=== PATIENT | male | born 1980 | race Caucasian/White ===

== ENCOUNTER 2016-05-09 11:30 | Emergency (ER) | payer SELFPAY ==
[2016-05-09 11:34] VITALS: BMI 32.3
[2016-05-09] MEDS ORDERED: ASPIRIN PO ONE (11:48)
[2016-05-09] MEDS ORDERED: NITROSTAT SL PRN (11:48)
[2016-05-09] MEDS ORDERED: ASPIRIN ONE (11:49)
[2016-05-09] MEDS ORDERED: NITROSTAT SL ONE (11:50)
[2016-05-09 12:02] LABS: BASOPHILS # (AUTO) 0.1 X10^3/uL (0.0-0.1); BASOPHILS % (AUTO) 1.3 % (0.2-1.0); EOSINOPHILS # (AUTO) 0.3 x10^3/uL (0.0-0.2); EOSINOPHILS % (AUTO) 3.9 % (0.9-2.9); HEMATOCRIT 42.5 % (42.0-54.0); HEMOGLOBIN 14.4 g/dL (13.5-18.0); LYMPHOCYTES # (AUTO) 1.3 X10^3/uL (1.3-2.9); LYMPHOCYTES % (AUTO) 19.9 % (21.0-51.0); MEAN CORPUSCULAR HEMOGLOBIN 27.6 pg (27.0-34.0); MEAN CORPUSCULAR HGB CONC 33.8 g/dL (33.0-35.0); MEAN CORPUSCULAR VOLUME 81.5 fL (80.0-100.0); MEAN PLATELET VOLUME 8.2 fL (7.4-11.0); MONOCYTES # (AUTO) 0.5 x10^3/uL (0.3-0.8); MONOCYTES % (AUTO) 8.1 % (0.0-13.0); NEUTROPHILS # (AUTO) 4.5 x10^3/uL (2.2-4.8); NEUTROPHILS % (AUTO) 66.8 % (42.0-75.0); PLATELET COUNT 314 X10^3/uL (150.0-450.0); RED BLOOD COUNT 5.21 X10^6/uL (4.7-6.0); RED CELL DISTRIBUTION WIDTH 14.1 % (11.6-16.5); WHITE BLOOD COUNT 6.7 X10^3/uL (3.6-10.0)
[2016-05-09 12:20] VITALS: BP 131/65
[2016-05-09 12:30] LABS: BLOOD UREA NITROGEN 16 mg/dL (7-18); CALCIUM 8.8 mg/dL (8.5-10.1); CARBON DIOXIDE 28.5 mmol/L (21-32); CHLORIDE 104 mmol/L (98-107); D DIMER < 100 ng/mL (0-400); GLUCOSE 78 mg/dL (65-99); SODIUM 142 mmol/L (136-145); TROPONIN I < 0.02 ng/mL (0-1.5); eGFR BLACK RACES > 60 (>60); eGFR NON BLACK RACES > 60 (>60)
[2016-05-09 12:34] LABS: ALANINE AMINOTRANSFERASE 46 Units/L (12-78); ALBUMIN 3.9 g/dL (3.4-5.0); ALKALINE PHOSPHATASE 95 Units/L (46-116); ASPARTATE AMINO TRANSFERASE 19 Units/L (15-37); CREATINE KINASE 103 Units/L (39-308); CREATINE KINASE MB < 1.0 ng/mL (0-4.0); TOTAL PROTEIN 7.7 g/dL (6.4-8.2)
--- NOTE | 2016-05-09 12:50 | RAD ---
HISTORY: Chest pain Study: Chest, one view Comparison: None Findings: The trachea is midline. The cardiac silhouette is unremarkable. The lungs are clear without focal infiltrate or effusion. The bony thorax is unremarkable. IMPRESSION: 1. No acute cardiopulmonary disease. Reported By:
--- NOTE | 2016-05-09 12:51 | DR.GENAD ---
HPI - PCP Primary Care Physician: [email or web address] - HPI Comment HPI Comment: 36 y/o white male with remarkable HTN presents to ED complaining of feeling chest tightness since approximately two hours ago.Patient denies SOB headaches.Patient denies recent stressful event. - Complaint/Symptoms Chief Complaint Doctors Comments: Chest tightness Chief Complaint:: patient stated he has had chest pain for the last couple of hours. he stated its tight in his chest - Nurses notes reviewed Nurses Notes Review: Yes - Source History Provided: Patient - Mode of Arrival Mode of Arrival: Ambulatory - Timing Onset of Chief Complaint: 05/09/16 Came on: Suddenly - Duration Duration: Since Onset Duration: Hours - Severity Severity: Mild PMH - PMH Past Medical History: Yes Past Medical History: Hypertension Past Surgical History: No - Family History History of Family Medical Conditions: Yes Family Medical History: Diabetes Mellitus, [place], Coronary Artery Disease - Social History Does patient currently use any type of tobacco product: No Have you used tobacco products in the last 12 months: No Type of Tobacco Use: None Does any household member use tobacco: No Alcohol Use: None Do you use any recreational Drugs:: No Lives With: Family Lives Where: Home - infectious screening In the last 2 months have you had wt loss of >10#?: NO Have you had fever, night sweats or hemotysis?: No Have you traveled outside the country in the last 6 months?: No Isolation: Standard ROS - Review of Systems Constitutional: No Symptoms Reported Eyes: No Symptoms Reported ENTM: No Symptoms Reported Respiratoy: See HPI Cardiovascular: No Symptoms Reported Gastrointestinal/Abdominal: No Symptoms Reported Genitourinary: No Symptoms Reported Neurological: No Symptoms Reported Musculoskeletal: No Symptoms Reported Integumentary: No Symptoms Reported Hematologic/Lymphatic: No Symptoms Reported Endocrine: No Symptoms Reported Psychiatric: No Symptoms Reported All Other Systems: Reviewed and Negative PE - Vital Signs Vitals: Pulse Rate [Right Brachial] 78 Respiratory Rate 16 Blood Pressure [Right Arm] 131/65 Blood Pressure 122/78 O2 Sat by Pulse Oximetry 98 - General Limitations: No Limitations General Appearance: Alert, In No Apparent Distress - Head Head Exam: Normal Inspection - Eyes Eye exam: Normal Appearance - ENT ENT Exam: Normal Exam, Normal Oropharynx, Normal External Ear Exam External Ear Exam: Normal External Inspection TM/Canal Exam: Bilateral Normal Nose Exam: Normal Nose Exam Mouth Exam: Normal Inspection Throat Exam: Normal Inspection - Neck Neck Exam: Normal Inspection - Chest Chest Inspection: Normal Inspection - Respiratory Respiratory Exam: Normal Lung Sounds Bilat Respiratory Exam: Bilateral Clear to Auscultation - Cardiovascular Cardiovascular Exam: Regular Rate, Normal Rhythm - Abdominal Exam Abdominal Exam: Normal Inspection, Normal Bowel Sounds, Soft - Extremities Extremities Exam: Normal Inspection - Back Back Exam: Normal Inspection - Neurologic Neurological Exam: Alert, Oriented X3, CN II-XII Intact - Psychiatric Psychiatric Exam: Anxious - Skin Skin Exam: Warm, Dry, Intact, Normal Color Course - Reevaluation 1st: Resolved - Education/Counseling Education/Counseling: Patient Educated On: Treatment, Diagnosis, Needs for Follow Up ROR - Labs Reviewed Laboratory Results Reviewed?: Yes Result Diagrams: 05/09/16 11:45 05/09/16 11:45 Laboratory: WBC 6.7 X10^3/uL (3.6-10.0) 05/09/16 11:45 RBC 5.21 X10^6/uL (4.7-6.0) 05/09/16 11:45 Hgb 14.4 g/dL (13.5-18.0) 05/09/16 11:45 Hct 42.5 % (42.0-54.0) 05/09/16 11:45 MCV 81.5 fL (80.0-100.0) 05/09/16 11:45 MCH 27.6 pg (27.0-34.0) 05/09/16 11:45 MCHC 33.8 g/dL (33.0-35.0) 05/09/16 11:45 RDW 14.1 % (11.6-16.5) 05/09/16 11:45 Plt Count 314 X10^3/uL (150.0-450.0) 05/09/16 11:45 MPV 8.2 fL (7.4-11.0) 05/09/16 11:45 Neut % 66.8 % (42.0-75.0) 05/09/16 11:45 Lymph % 19.9 % (21.0-51.0) L 05/09/16 11:45 [place] % 8.1 % (0.0-13.0) 05/09/16 11:45 Eos % 3.9 % (0.9-2.9) H 05/09/16 11:45 Baso % 1.3 % (0.2-1.0) H 05/09/16 11:45 Neut # 4.5 x10^3/uL (2.2-4.8) 05/09/16 11:45 Lymph # 1.3 X10^3/uL (1.3-2.9) 05/09/16 11:45 [place] # 0.5 x10^3/uL (0.3-0.8) 05/09/16 11:45 Eos # 0.3 x10^3/uL (0.0-0.2) H 05/09/16 11:45 Baso # 0.1 X10^3/uL (0.0-0.1) 05/09/16 11:45 Absolute Nucleated RBC 0.1 /100WBC 05/09/16 11:45 INR Target Range - 05/09/16 11:45 INR 0.97 (0.8-1.3) 05/09/16 11:45 PTT 25.1 SECONDS (22.9-36.5) 05/09/16 11:45 PTT Comment - 05/09/16 11:45 D-Dimer < 100 ng/mL (0-400) 05/09/16 11:45 Sodium 142 mmol/L (136-145) 05/09/16 11:45 Corrected Sodium TNP 05/09/16 11:45 Potassium 4.0 mmol/L (3.5-5.1) 05/09/16 11:45 Chloride 104 mmol/L (98-107) 05/09/16 11:45 Carbon Dioxide 28.5 mmol/L (21-32) 05/09/16 11:45 BUN 16 mg/dL (7-18) 05/09/16 11:45 Creatinine 1.00 mg/dL (0.70-1.30) 05/09/16 11:45 Est GFR (MDRD) Af Amer > 60 (>60) 05/09/16 11:45 Est GFR (MDRD) Non-Af > 60 (>60) 05/09/16 11:45 Glucose 78 mg/dL (65-99) 05/09/16 11:45 Calcium 8.8 mg/dL (8.5-10.1) 05/09/16 11:45 Corrected Calcium TNP 05/09/16 11:45 Magnesium 2.0 mg/dL (1.7-2.9) 05/09/16 11:45 Total Bilirubin 0.30 mg/dL (0.2-1.0) 05/09/16 11:45 AST 19 Units/L (15-37) 05/09/16 11:45 ALT 46 Units/L (12-78) 05/09/16 11:45 Alkaline Phosphatase 95 Units/L (46-116) 05/09/16 11:45 Creatine Kinase 103 Units/L (39-308) 05/09/16 11:45 CK-MB (CK-2) < 1.0 ng/mL (0-4.0) 05/09/16 11:45 CK/CKMB % Calc 1.0 % (<4) 05/09/16 11:45 Troponin I < 0.02 ng/mL (0-1.5) 05/09/16 11:45 Total Protein 7.7 g/dL (6.4-8.2) 05/09/16 11:45 Albumin 3.9 g/dL (3.4-5.0) 05/09/16 11:45 Globulin 3.8 g/dL (2.5-4.5) 05/09/16 11:45 Albumin/Globulin Ratio 1.0 Ratio (1.1-2.1) L 05/09/16 11:45 reviewed - XRAY XRAY Interpreted by: Radiologist, Self XRAY Findings: Normal - EKG Rate: 63 [place]: Normal Rhythm: NSR Block: None Hypertrophy: None ST: Normal - Diagnosis Discharge Problem: Chest pain, atypical, Anxiety - Discharge Plan Disposition: 01 HOME, SELF-CARE Condition: Stable - Follow ups/Referrals Follow ups/Referrals: Gil Rosenthal [Primary Care Provider] - 3 days - Instructions Instructions: Nonspecific Chest Pain, Depression, Adult Additional Instructions: Follow up with PCP. Patient advised to return to ED if symptoms worsens Additional Notes - Additional Notes Additional Notes: All results discussed with patient
== END 2016-05-09 13:13 | disposition home or self-care (01) ==
LOC: ER 11:30
DX: F41.8 Other specified anxiety disorders (principal); R07.89 Other chest pain
CPT/HCPCS: 36415; 71010; 80053; 82550; 82553; 83735; 84484; 85025; 85378; 85610; 85730; 93005; 96365; 96374; 99283; A4222

== ENCOUNTER 2016-10-03 20:28 | Emergency (ER) | payer SELFPAY ==
[2016-10-03 20:44] VITALS: BP 118/69; BMI 30.8
--- NOTE | 2016-10-03 21:26 | DR.GENAD ---
HPI - PCP Primary Care Physician: CORBY - Complaint/Symptoms Chief Complaint:: PT C/O LT SHOULDER PAIN AND NECK PAIN FOR A FEW DAYS - Source History Provided: Patient - Mode of Arrival Mode of Arrival: Ambulatory - Timing Onset of Chief Complaint: 09/25/16 PMH - PMH Past Medical History: Yes Past Medical History: Hypertension Past Surgical History: No - Family History History of Family Medical Conditions: Yes Family Medical History: Diabetes Mellitus, [place], Coronary Artery Disease - Social History Alcohol Use: None Do you use any recreational Drugs:: No Lives With: Family Lives Where: Home - infectious screening In the last 2 months have you had wt loss of >10#?: NO Have you had fever, night sweats or hemotysis?: No Have you traveled outside the country in the last 6 months?: No Isolation: Standard ROS - Review of Systems Eyes: No Symptoms Reported ENTM: No Symptoms Reported Respiratoy: No Symptoms Reported Cardiovascular: No Symptoms Reported PE - Vital Signs Vitals: Temperature 99.4 F Pulse Rate 109 Respiratory Rate 18 Blood Pressure [Right Arm] 131/65 Blood Pressure 118/69 O2 Sat by Pulse Oximetry 98 - General General Appearance: Alert, In No Apparent Distress - Head Head Exam: Normal Inspection, Atraumatic - Eyes Eye exam: Normal Appearance, PERRL, EOMI, Scleral Icterus - ENT ENT Exam: Normal Exam External Ear Exam: Normal External Inspection TM/Canal Exam: Bilateral Normal Nose Exam: Normal Nose Exam Mouth Exam: Normal Inspection Throat Exam: Normal Inspection - Neck Neck Exam: Normal Inspection - Chest Chest Inspection: Normal Inspection - Respiratory Respiratory Exam: Normal Lung Sounds Bilat Respiratory Exam: Bilateral Clear to Auscultation - Cardiovascular Cardiovascular Exam: Regular Rate, Normal Rhythm - Abdominal Exam Abdominal Exam: Normal Inspection, Normal Bowel Sounds Abdominal Tenderness: negative: RUQ, RLQ, LUQ, LLQ, Epigastrium, Suprapubic, Diffuse, Mild, Moderate, Severe, Other - Extremities Extremities Exam: Normal Inspection, Full ROM - Back Back Exam: Tenderness (upper back) - Neurologic Neurological Exam: Alert, Oriented X3, CN II-XII Intact - Psychiatric Psychiatric Exam: Normal Affect ROR - XRAY XRAY Interpreted by: Radiologist (C Spine: negative; T Spine: mild s-shape thoracic scoliosis. The AP alignment is normal. No significant height loss of the visualized vertebral bodies identified.) - Diagnosis Discharge Problem: Thoracic scoliosis Qualifiers: Scoliosis type: idiopathic Idiopathic scoliosis type: other Qualified Code(s): M41.24 - Other idiopathic scoliosis, thoracic region - Discharge Plan Condition: Stable - Follow ups/Referrals Follow ups/Referrals: Gil Rosenthal [Primary Care Provider] - 3 days - Instructions
[2016-10-03] MEDS ORDERED: TORADOL 60 MG VIAL IM ONE (21:27)
[2016-10-03] MEDS ORDERED: TORADOL 60 MG VIAL ONE (21:32)
--- NOTE | 2016-10-03 22:34 | RAD ---
Thoracic spine, three views Indication: Back pain. Comparison: None Findings: The upper thoracic levels are obscured on the lateral views. There is mild S-shaped thorac ic scoliosis. The AP alignment is normal. No significant height loss of the visualized vertebral bod ies identified. The disc spaces are grossly maintained. Impression: Mild thoracic scoliosis. No acute thoracic spine fracture identified. Reported By:
--- NOTE | 2016-10-03 22:35 | RAD ---
Cervical spine, three views Indication: Neck pain with radiation to left shoulder Comparison: None Findings: The cervical spine alignment is normal. There is no significant vertebral body height loss or cortical disruption. The facet joints and disc spaces are grossly intact. No prevertebral soft t issue swelling. The open-mouth view is suboptimal, but the C1-2 articulation is within normal limits . Impression: No significant abnormality. Reported By:
== END 2016-10-03 23:26 | disposition home or self-care (01) ==
LOC: ER 20:28
DX: M41.24 Other idiopathic scoliosis, thoracic region (principal)
CPT/HCPCS: 72040; 72072; 96372; 99282; J1885

== ENCOUNTER 2016-12-05 07:42 | Emergency (ER) | payer SELFPAY ==
[2016-12-05 07:48] VITALS: BP 144/82; BMI 31.5
[2016-12-05] MEDS ORDERED: ADACEL TDaP IM ONE (08:23)
[2016-12-05] MEDS ORDERED: HYDROGEN PEROXIDE 3% ONE (08:23)
--- NOTE | 2016-12-05 08:45 | DR.EXTPAIN ---
HPI - Time seen Time seen: 08:30 - PCP Primary Care Physician: JOHN - Complaint/Symptoms Chief Complaint:: HIT HEAD ON REFIGATOR DOOR - Nurses notes reviewed Nurses Notes Review: Yes - Source History Provided: Patient - Mode of arrival Mode of Arrival: Ambulatory - Timing Onset of Chief Complaint: 12/05/16 - Context History of: None - Associated signs and symptoms Associated Signs and Symptoms: Pain, Other (2CM SCALP LAC.) PMH - PMH Past Medical History: Yes Past Medical History: Hypertension Past Surgical History: No - Family History History of Family Medical Conditions: No Family Medical History: Diabetes Mellitus, [place], Coronary Artery Disease - Social History Does any household member use tobacco: No Alcohol Use: None Do you use any recreational Drugs:: No Lives With: Spouse, Family Lives Where: Home - infectious screening In the last 2 months have you had wt loss of >10#?: NO Have you had fever, night sweats or hemotysis?: No Have you traveled outside the country in the last 6 months?: No Isolation: Standard ROS - Review of Systems Constitutional: No Symptoms Reported Eyes: No Symptoms Reported ENTM: No Symptoms Reported Respiratoy: No Symptoms Reported Cardiovascular: No Symptoms Reported Gastrointestinal/Abdominal: No Symptoms Reported Genitourinary: No Symptoms Reported Neurological: No Symptoms Reported Musculoskeletal: No Symptoms Reported Integumentary: Change in Color, Wound (2CM SCALP LAC) Hematologic/Lymphatic: No Symptoms Reported Endocrine: No Symptoms Reported All Other Systems: Reviewed and Negative PE - Vital Signs Vitals: Temperature 97.5 F Pulse Rate 101 Respiratory Rate 20 Blood Pressure [Right Arm] 131/65 Blood Pressure 144/82 O2 Sat by Pulse Oximetry 98 - General Limitations: No Limitations General Appearance: Alert - Head Head Exam: Other (2CM SCALP LAC.) - Eyes Eye exam: Normal Appearance - ENT ENT Exam: Normal External Ear Exam - Neck Neck Exam: Trachea Midline - Chest Chest Inspection: Symmetric Chest Wall Rise - Respiratory Respiratory Exam: Normal Lung Sounds Bilat Respiratory Exam: Bilateral Clear to Auscultation - Cardiovascular Cardiovascular Exam: Regular Rate, Normal Rhythm, Normal Heart Sounds - Abdominal Exam Abdominal Exam: Normal Inspection - Extremities Extremities Exam: Normal Inspection - Lower Extremities Neurovascular/Tendon Exam: Normal Capillary Refill Gait Exam: Observed and Normal - Back Back Exam: Normal Inspection - Neurological Neurological Exam: Alert, Oriented X3 - Psychiatric Psychiatric Exam: Normal Affect, Normal Mood - Skin Skin Exam: Erythema Type of Lesion: Laceration (2CM RT PARIETAL SCALP) MDM - Differential Diagnosis Differential Diagnosis: Laceration (SCALP) Course - Treatment Treatment: SEE ORDERS. ROR - XRAY XRAY Interpreted by: Radiologist Procedures - Laceration/Wound Repair Right Head Wound Length (cm): 2 Wound's Depth, Shape: Linear Wound Explored: clean Betadine Prep?: Yes Anesthesia: 1% Lidocaine Wound Debrided: minimal Progress: 3 CB APPLIED TO WOUND TO CLOSE WOUND. - Diagnosis Discharge Problem: Scalp laceration - Discharge Plan Disposition: 01 HOME, SELF-CARE Condition: Stable Prescriptions: Ibuprofen [MOTRIN TAB 800 MG *] 800 mg PO Q8H PRN #20 tab PRN Reason: Pain/Inflammation - Follow ups/Referrals Follow ups/Referrals: Gil Rosenthal [Primary Care Provider] - 3 days - Instructions Instructions: Laceration Care, Adult, [id number] Additional Instructions: RETURN TO RD IF WORSE. STAPLE OUT IN 7 TO 10 DAYS.
== END 2016-12-05 08:55 | disposition home or self-care (01) ==
LOC: ER 07:52
PROC: 0WQ00ZZ Repair Head, Open Approach (ICD-10-PCS; principal; 2016-12-05)
DX: S01.01XA Laceration without foreign body of scalp, initial encounter (principal); X58.XXXA Exposure to other specified factors, initial encounter; Y92.9 Unspecified place or not applicable
CPT/HCPCS: 12001; 90471; 99282